=== PATIENT | female | born 1935 | race Caucasian/White ===

== ENCOUNTER 2020-04-26 08:52 | Emergency (ER) | payer OTHER ==
[~2020-04-26] VITALS: Ht 160 cm; Wt 77.1 kg
[2020-04-26 08:52] VITALS: BP_SYST 134
--- NOTE | 2020-04-26 08:52 | NUR ---
Placed in room 1. Placed on personnel monitor, blood pressure machine and pulse oximeter. To gown for exam. Side rails up. Report given to PARAMJIT Parikh.
--- NOTE | 2020-04-26 09:00 | NUR ---
ekg done and given to
--- NOTE | 2020-04-26 09:00 | NUR ---
pt arrives from home via [facility] d/t increasing palpitations. Adenosine 6mg IVP given on route. Current HR is 65 SR. Pt is AAOx4. security monitor placed. EKG done and given to
--- NOTE | 2020-04-26 09:10 | NUR ---
ALTON Haider at bedside examining patient.
[2020-04-26] MEDS ORDERED: ADENOSINE 6MG/2ML VIAL IVP ONE (09:15)
--- NOTE | 2020-04-26 09:20 | NUR ---
pt getting labs drawn at the bedside
[2020-04-26 10:11] LABS: BASOPHILS # (AUTO) 0.1 K/uL (0.0-0.2); BASOPHILS % (AUTO) 0.7 % (0.0-2.0); EOSINOPHILS # (AUTO) 0.4 K/uL (0.0-0.4); EOSINOPHILS % (AUTO) 4.3 % (0.0-4.0); HEMATOCRIT 41.5 % (36-48); HEMOGLOBIN 13.7 g/dL (12.0-16.0); LYMPHOCYTES # (AUTO) 1.9 K/uL (1.0-5.5); LYMPHOCYTES % (AUTO) 22.4 % (20.5-51.5); MEAN CORPUSCULAR HEMOGLOBIN 31 pg (27-31); MEAN CORPUSCULAR HGB CONC 33 % (32-36); MEAN CORPUSCULAR VOLUME 93 fL (79.0-98.0); MONOCYTES # (AUTO) 0.8 K/uL (0.0-1.0); MONOCYTES % (AUTO) 8.8 % (1.7-9.3); NEUTROPHILS # (AUTO) 5.5 K/uL (1.8-7.7); NEUTROPHILS % (AUTO) 63.8 % (40.0-70.0); PLATELET COUNT (AUTO) 263 K/uL (130-430); RED BLOOD CELL COUNT(AUTO) 4.46 MIL/uL (4.2-6.2); WHITE BLOOD COUNT (AUTO) 8.7 K/uL (4.8-10.8)
[2020-04-26 10:17] LABS: ANION GAP 5 (5-15); CALCIUM 9.3 mg/dL (8.4-11.0); CHLORIDE 104 mmol/L (98-107); CREATININE 0.85 mg/dL (0.55-1.30); GLUCOSE 92 mg/dL (70-99); POTASSIUM 4.5 mmol/L (3.5-5.1); SODIUM SERUM 139 mmol/L (136-145); UREA NITROGEN, BLOOD 20 mg/dL (8-21)
[2020-04-26 10:26] LABS: ALANINE AMINOTRANSFERASE 24 U/L (12-78); ALBUMIN 3.1 g/dL (3.4-4.8); ASPARTATE AMINOTRANSFERASE 15 U/L (10-37); TOTAL BILIRUBIN 0.2 mg/dL (0.0-1.0)
[2020-04-26 11:54] VITALS: BP_SYST 157
== END 2020-04-26 11:54 | disposition home or self-care (01) ==
LOC: SED 08:52
DX: I47.1 Supraventricular tachycardia (principal); I10 Essential (primary) hypertension; E78.00 Pure hypercholesterolemia, unspecified
CPT/HCPCS: 36415; 71045; 80053; 84484; 85025; 93005; 99285; J0153